=== PATIENT | female | born 1945 | race African-American/Black ===

== ENCOUNTER 2017-04-11 13:16 | Emergency (ER) | payer MEDICARE, OTHER ==
[~2017-04-11] VITALS: Ht 167.6 cm; Wt 68.9 kg
[2017-04-11 13:25] VITALS: BP 178/109
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
[2017-04-11] MEDS ORDERED: Bacitracin Oint UD TOPIC ONE (13:45)
--- NOTE | 2017-04-11 14:27 | Diagnostic Imaging Report ---
Indication: PAIN Technique: 3 views of the right knee Comparison: None Findings:There are small osteophytes. Joint spaces are preserved. No acute fractures. No dislocations. No suprapatellar effusion. Impression:No acute process
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
[2017-04-11] MEDS ORDERED: TYLENOL EXTRA500 MG ORAL (14:45)
[2017-04-11] MEDS ORDERED: BACITRACIN-P28.35 GM TP (14:45)
[2017-04-11 15:01] VITALS: BP 120/95
--- NOTE | 2017-04-11 15:04 | Diagnostic Imaging Report ---
Indication: PAIN left hand pain Technique: 3 views left hand Comparison: none Findings: No acute fractures are demonstrated. No dislocations. Bones are osteoporotic. There is slight flexion deformity of the fifth distal interphalangeal joint. There are degenerative changes of the joint. Small erosion is seen the radial side of the head of the third proximal phalanx. Marked degenerative proliferative changes of the trapezium are noted. There is degenerative narrowing of the first metatarsophalangeal joint. Impression: No acute bony trauma Degenerative changes, as described
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
== END 2017-04-11 15:16 | disposition home or self-care (01) ==
LOC: EDBD 13:16 → EMR 13:45
DX: S80.00XA Contusion of unspecified knee, initial encounter (principal); S20.312A Abrasion of left front wall of thorax, initial encounter; M25.542 Pain in joints of left hand; M54.2 Cervicalgia; V43.62XA Car passenger injured in collision with other type car in traffic accident, initial encounter; Y93.9 Activity, unspecified; Y92.410 Unspecified street and highway as the place of occurrence of the external cause; Z88.0 Allergy status to penicillin; E11.9 Type 2 diabetes mellitus without complications; I10 Essential (primary) hypertension; M25.561 Pain in right knee
CPT/HCPCS: 71010; 99284